=== PATIENT | male | born 1965 | race Caucasian/White ===

== ENCOUNTER 2025-01-18 17:30 | Emergency (ER) | payer OTHER, SELFPAY ==
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
[2025-01-18 17:30] VITALS: BP 185/106; PULSE 75; RESP 18; TEMP 36.8; O2SAT 99
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
[2025-01-18] MEDS: KETOROLAC 30 MG/ML VIAL (*BKC) IM (18:10)
[2025-01-18] MEDS: ACETAMINOPHEN 500 MG TABLET 1000 MG PO (18:46)
--- NOTE | 2025-01-18 18:56 | PC.NURSE ---
+pms post alyson and sling applications
== END 2025-01-18 18:48 | disposition home or self-care (01) ==
PROVIDERS: Emergency Provider Emergency Medicine
DX: S43.401A Unspecified sprain of right shoulder joint, initial encounter (principal); S50.01XA Contusion of right elbow, initial encounter; S63.501A Unspecified sprain of right wrist, initial encounter; S63.91XA Sprain of unspecified part of right wrist and hand, initial encounter; V87.7XXA Person injured in collision between other specified motor vehicles (traffic), initial encounter
CPT/HCPCS: 73030; 73080; 73110; 73130; 96372; 99284; A4565; J1885